=== PATIENT | male | born 1960 | race Two or more races ===

== ENCOUNTER 2021-01-31 14:12 | Emergency (ER) | payer OTHER, MEDICAID ==
[~2021-01-31] VITALS: Ht 175.3 cm; Wt 54.4 kg
[2021-01-31 14:22] VITALS: BP 142/85
[2021-01-31] MEDS ORDERED: THIAMINE 100mg/ml INJ (200mg/2ml VIAL) IV ONE (14:30)
[2021-01-31] MEDS ORDERED: SODIUM CHLORIDE 0.9% 1,000 ML IV ONE ×2 (14:30)
== END 2021-01-31 17:09 | disposition left against medical advice (07) ==
LOC: EDBD 14:12 → ER 14:12
DX: F10.920 Alcohol use, unspecified with intoxication, uncomplicated (principal); I10 Essential (primary) hypertension
CPT/HCPCS: 70450

== ENCOUNTER 2023-06-02 12:51 | Inpatient (IN) | payer OTHER, MEDICAID ==
[~2023-06-02] VITALS: Ht 167.6 cm; Wt 86.2 kg
[2023-06-02] MEDS ORDERED: PANTOPRAZOLE 40 MG/10 ML VIAL INJ IV ONE (13:30)
[2023-06-02] MEDS ORDERED: SODIUM CHLORIDE 0.9% 2,000 ML IVB ONE (13:30)
[2023-06-02 14:06] VITALS: PULSE 67; RESP 14; O2SAT 99
[2023-06-02 14:08] LABS: Basophils # (auto) 0.2 10 ^3/uL (0-0.2); Basophils % (auto) 3.5 % (0.0-2.0); Eosinophils # (auto) 0.1 10 ^3/uL (0-0.8); Eosinophils % (auto) 1.2 % (0.0-7.0); Hematocrit 44.1 % (41.0-53.0); Hemoglobin 15.4 g/dL (13.5-17.5); Lymphocytes # (auto) 0.5 10 ^3/uL (0.4-5.4); Lymphocytes % (auto) 11.1 % (10.0-50.0); Mean Corpuscular Hemoglobin 32.5 pg (28.0-32.0); Mean Corpuscular Hgb Conc. 34.9 g/dL (32.0-36.0); Mean Corpuscular Volume 93.2 fL (80.0-100.0); Monocytes # (auto) 0.5 10 ^3/uL (0-1.3); Monocytes % (auto) 10.3 % (0.0-12.0); Neutrophils # (auto) 3.4 10 ^3/uL (1.6-8.6); Neutrophils % (auto) 73.9 % (37.0-80.0); Nucleated Red Blood Cells % 0.1 %; Red Blood Cells 4.74 10^6/uL (4.5-5.90); Red Cell Distribution Width 14.9 % (11.8-14.3); White Blood Cell 4.6 10^3/uL (4.4-10.8)
[2023-06-02 14:24] LABS: INR 1.5 (0.9-1.15); Partial Thromboplastin Time 32.4 SEC (24.5-34.5); Prothrombin Time 15.3 sec (9.3-11.8)
[2023-06-02 14:31] LABS: Calcium 7.3 mg/dL (8.5-10.1); Magnesium 2.6 mg/dL (1.6-2.6); Potassium 3.6 mmol/L (3.5-5.1)
[2023-06-02 14:36] LABS: Bilirubin, Total 1.8 mg/dL (0.2-1.0); Total Protein 6.3 g/dL (6.4-8.2)
[2023-06-02] MEDS ORDERED: IOHEXOL 300 MG/ML 100ML BOTTLE IJ ONE (14:57)
[2023-06-02 17:46] LABS: Amphetamine Screen, Urine NEGATIVE (NEGATIVE); Barbiturate Scree,Urine NEGATIVE (NEGATIVE); Benzodiazephine Screen, Urine NEGATIVE (NEGATIVE); Cannabinoid Screen, Urine NEGATIVE (NEGATIVE); Cocaine Screen, Urine NEGATIVE (NEGATIVE); Opiate Scree,Urine NEGATIVE (NEGATIVE); Phencyclidine Screen, Urine NEGATIVE (NEGATIVE)
[2023-06-02 18:09] LABS: Urine Bacteria FEW /hpf (None Seen); Urine WBC <1 /hpf (0 - 3)
[2023-06-02 18:39] LABS: Urine Clarity CLEAR (Clear); Urine Color Straw (Yellow); Urine Protein, UAD Trace (Negative)
[2023-06-02 18:40] LABS: Urine Blood Negative /uL (Negative); Urine Urobilinogen Normal (Negative)
[2023-06-02] MEDS ORDERED: ONDANSETRON HCL 4 MG/2 ML VIAL IV PRN (21:15)
[2023-06-02] MEDS ORDERED: HYDROcodone-ACET 5/325MG TAB PO PRN (21:15)
[2023-06-02] MEDS ORDERED: IBUPROFEN 600 MG TAB PO PRN (21:15)
[2023-06-02] MEDS ORDERED: DOCUSATE SOD 100 MG CAP PO PRN (21:15)
[2023-06-02] MEDS ORDERED: ACETAMINOPHEN 325 MG TAB PO PRN (21:15)
[2023-06-02] MEDS ORDERED: MORPHINE SULFATE INJ 2 MG/ml SYRG IV PRN (21:30)
[2023-06-02] MEDS ORDERED: NITROGLYCERIN 0.4 MG SL TAB SL PRN (21:30)
[2023-06-02] MEDS: SODIUM CHLORIDE 0.9% 1,000 ML IV SCH (21:52)
[2023-06-02] MEDS: FAMOTIDINE (10MG/ML) 2ML VL IV SCH (21:53)
[2023-06-03 05:30] LABS: Basophils # (auto) 0.1 10 ^3/uL (0-0.2); Basophils % (auto) 1.1 % (0.0-2.0); Eosinophils # (auto) 0 10 ^3/uL (0-0.8); Eosinophils % (auto) 0.9 % (0.0-7.0); Hematocrit 43.7 % (41.0-53.0); Hemoglobin 15.6 g/dL (13.5-17.5); Lymphocytes # (auto) 0.8 10 ^3/uL (0.4-5.4); Lymphocytes % (auto) 15.8 % (10.0-50.0); Mean Corpuscular Hemoglobin 32.6 pg (28.0-32.0); Mean Corpuscular Hgb Conc. 35.7 g/dL (32.0-36.0); Mean Corpuscular Volume 91.5 fL (80.0-100.0); Monocytes # (auto) 0.5 10 ^3/uL (0-1.3); Monocytes % (auto) 9.4 % (0.0-12.0); Neutrophils # (auto) 3.6 10 ^3/uL (1.6-8.6); Neutrophils % (auto) 72.8 % (37.0-80.0); Nucleated Red Blood Cells % 0.4 %; Red Blood Cells 4.77 10^6/uL (4.5-5.90)
[2023-06-03 05:48] LABS: Albumin 3.2 g/dL (3.4-5.0); BUN/Creatinine Ratio 10.5 (10.0-20.0); Calcium 7.7 mg/dL (8.5-10.1); Potassium 3.7 mmol/L (3.5-5.1)
[2023-06-03 05:51] LABS: Bilirubin, Total 1.6 mg/dL (0.2-1.0); Total Protein 6.5 g/dL (6.4-8.2)
[2023-06-03 07:45] VITALS: PULSE 72; RESP 20; O2SAT 95
[2023-06-03] MEDS: FAMOTIDINE (10MG/ML) 2ML VL IV SCH ×2 (11:20→22:09)
[2023-06-03] MEDS: FOLIC ACID 1 MG TAB PO SCH (11:21)
[2023-06-03] MEDS: hydrALAZINE HCL 20 MG/ML VL IV PRN ×2 (11:22→23:09)
[2023-06-03] MEDS: THIAMINE HCL 100 MG TAB PO SCH (11:22)
[2023-06-03] MEDS: MULTIPLE VITAMIN TAB PO SCH (11:22)
[2023-06-03] MEDS: ENOXAPARIN SOD 40 MG/0.4 ML SYRINGE SC SCH (11:22)
[2023-06-03] MEDS: SODIUM CHLORIDE 0.9% 1,000 ML IV SCH (14:30)
[2023-06-03] MEDS ORDERED: hydrALAZINE HCL 20 MG/ML VL IV PRN (15:15)
[2023-06-03 19:15] VITALS: PULSE 96; RESP 20; O2SAT 96
[2023-06-03] MEDS: ATORVASTATIN 20 MG TAB PO SCH (22:09)
[2023-06-04] VITALS (7 sets, daily range): BP systolic 110–151; BP diastolic 64–80; PULSE 74–96; RESP 18–20; TEMP 97.4–98.5; O2SAT 94–99
[2023-06-04] MEDS ORDERED: TEMAZEPAM 15 MG CAP PO ONE (00:15)
[2023-06-04] MEDS: SODIUM CHLORIDE 0.9% 1,000 ML IV SCH ×2 (06:35→23:44)
[2023-06-04] MEDS: THIAMINE HCL 100 MG TAB PO SCH (09:33)
[2023-06-04] MEDS: FAMOTIDINE (10MG/ML) 2ML VL IV SCH (09:33)
[2023-06-04] MEDS: ASPirin 81 mg TAB PO SCH (09:34)
[2023-06-04] MEDS: MULTIPLE VITAMIN TAB PO SCH (09:34)
[2023-06-04] MEDS: ENOXAPARIN SOD 40 MG/0.4 ML SYRINGE SC SCH (09:34)
[2023-06-04] MEDS: FOLIC ACID 1 MG TAB PO SCH (09:34)
[2023-06-04] MEDS: LISINOPRIL 10 MG TAB PO SCH (09:34)
[2023-06-04] MEDS ORDERED: LOPERAMIDE HCL 2 MG CAP/TAB PO PRN ×2 (12:00→14:30)
[2023-06-04] MEDS ORDERED: LORazepam 2MG/ML-1ML VIAL IV PRN (14:30)
[2023-06-04] MEDS ORDERED: PANTOPRAZOLE 40 MG/10 ML VIAL INJ IV ONE (14:30)
[2023-06-04] MEDS ORDERED: traMADol HCL 50 MG TAB PO PRN (14:30)
[2023-06-04] MEDS: ATORVASTATIN 20 MG TAB PO SCH (22:00)
[2023-06-05] MEDS ORDERED: TEMAZEPAM 15 MG CAP PO ONE (00:30)
[2023-06-05 05:00] VITALS: BP 121/65; PULSE 76; RESP 18; TEMP 97.8; O2SAT 96
[2023-06-05 06:47] LABS: Basophils # (auto) 0 10 ^3/uL (0-0.2); Basophils % (auto) 0.9 % (0.0-2.0); Eosinophils # (auto) 0.1 10 ^3/uL (0-0.8); Eosinophils % (auto) 2.2 % (0.0-7.0); Hematocrit 40.5 % (41.0-53.0); Hemoglobin 13.9 g/dL (13.5-17.5); Lymphocytes # (auto) 1.1 10 ^3/uL (0.4-5.4); Mean Corpuscular Hemoglobin 32.4 pg (28.0-32.0); Mean Corpuscular Hgb Conc. 34.2 g/dL (32.0-36.0); Mean Corpuscular Volume 94.7 fL (80.0-100.0); Monocytes # (auto) 0.5 10 ^3/uL (0-1.3); Monocytes % (auto) 11.9 % (0.0-12.0); Neutrophils # (auto) 2.2 10 ^3/uL (1.6-8.6); Nucleated Red Blood Cells % 0.1 %; Red Blood Cells 4.27 10^6/uL (4.5-5.90); Red Cell Distribution Width 15.2 % (11.8-14.3); White Blood Cell 3.8 10^3/uL (4.4-10.8)
[2023-06-05 06:50] LABS: INR 1.05 (0.9-1.15); Partial Thromboplastin Time 27.7 SEC (24.5-34.5)
[2023-06-05 07:05] LABS: Potassium 3.5 mmol/L (3.5-5.1)
[2023-06-05 07:21] LABS: Albumin 2.7 g/dL (3.4-5.0); BUN/Creatinine Ratio 10.3 (10.0-20.0); Bilirubin, Total 0.8 mg/dL (0.2-1.0); Total Protein 6.1 g/dL (6.4-8.2)
[2023-06-05 08:10] VITALS: BP_SYST 121; BP_SYST 139; BP_DIAS 74; PULSE 74; PULSE 81; RESP 16; RESP 18; TEMP 98; O2SAT 95
[2023-06-05 09:08] VITALS: BP 121/74; PULSE 68; RESP 15; TEMP 98; O2SAT 97
[2023-06-05] MEDS: LISINOPRIL 10 MG TAB PO SCH (09:24)
[2023-06-05] MEDS: ASPirin 81 mg TAB PO SCH (09:24)
[2023-06-05] MEDS: THIAMINE HCL 100 MG TAB PO SCH (09:24)
[2023-06-05] MEDS: FOLIC ACID 1 MG TAB PO SCH (09:24)
[2023-06-05] MEDS: MULTIPLE VITAMIN TAB PO SCH (09:24)
[2023-06-05] MEDS ORDERED: PANTOPRAZOLE 40 MG/10 ML VIAL INJ IV SCH (10:00)
[2023-06-05] MEDS ORDERED: LOP2C PO (10:31)
[2023-06-05] MEDS ORDERED: LOSA25TA15 PO (10:32)
[2023-06-05 12:30] VITALS: BP 119/58; PULSE 91; RESP 16; TEMP 97.9; O2SAT 96
[2023-06-05] MEDS: SODIUM CHLORIDE 0.9% 1,000 ML IV SCH (15:55)
[2023-06-05 16:29] VITALS: BP 97/49; PULSE 78; RESP 16; TEMP 98; O2SAT 94
[2023-06-07] MEDS ORDERED: ATOR40TA52 PO (07:33)
[2023-06-07] MEDS ORDERED: ESOM40CA83 PO (07:33)
[2023-06-07] MEDS ORDERED: ASPI1TAB20 PO (07:38)
[2023-06-07 11:58] LABS: Hepatitis A Ab IgM Negative; Hepatitis B Core IgM Negative
[2023-06-07 11:59] LABS: Hepatitis B Surface Antigen Negative (Negative); Hepatitis C Antibody Negative (Negative)
== END 2023-06-05 16:00 | disposition home or self-care (01) | DRG 641 ==
LOC: ER 12:56 → TELE 21:25 → EAST 06-04 10:14
PROVIDERS: ADMIT Internal Medicine; ATTEND Student in an Organized Health Care Education/Training Program
DX: E86.0 Dehydration (principal); F10.239 Alcohol dependence with withdrawal, unspecified; K52.9 Noninfective gastroenteritis and colitis, unspecified; E87.1 Hypo-osmolality and hyponatremia; E87.20 Acidosis, unspecified; K70.30 Alcoholic cirrhosis of liver without ascites; E78.5 Hyperlipidemia, unspecified; R73.9 Hyperglycemia, unspecified; I10 Essential (primary) hypertension; E66.9 Obesity, unspecified; E88.09 Other disorders of plasma-protein metabolism, not elsewhere classified; K82.8 Other specified diseases of gallbladder; N28.1 Cyst of kidney, acquired; Y90.9 Presence of alcohol in blood, level not specified; K57.90 Diverticulosis of intestine, part unspecified, without perforation or abscess without bleeding; H54.8 Legal blindness, as defined in USA; Z68.30 Body mass index [BMI] 30.0-30.9, adult; Y90.4 Blood alcohol level of 80-99 mg/100 ml
CPT/HCPCS: 36415; 70450; 74177; 76705; 80053; 80061; 80074; 80307; 80320; 81001; 82270; 82962; 83036; 83605; 83690; 83735; 83880; 84443; 84484; 85025; 85610; 85730; 87045; 87427; 87493; 93005; 93306; 93886; 96361; 96374; C9113; G0378; J2405; J3490